=== PATIENT | female | born 1970 | race Caucasian/White ===

== ENCOUNTER 2016-10-28 10:09 | Emergency (ER) | payer MEDICAID, OTHER ==
--- NOTE | 2016-10-28 10:56 | ER Document Report ---
ED GI/ - General Time seen by provider: 10:44 Mode of Arrival: Ambulatory Information source: Patient TRAVEL OUTSIDE OF THE [place] IN LAST 30 DAYS: No - HPI Patient complains to provider of: Abdominal pain Onset: Other - see HPI note Similar symptoms previously: Yes Recently seen / treated by doctor: Yes <JOBY WALKER - Last Filed: 10/28/16 11:08> <ZACKARY GALAVIZMY - Last Filed: 10/31/16 02:57> - General Chief Complaint: Abdominal Pain Stated Complaint: ABDOMINAL PAIN Notes: Patient is a 46-year-old female presenting to the emergency department for lower abdominal pain and left-sided abdominal pain and nausea. Patient is unsure if she is and told the triage nurse that she hasn't had a menstrual period for a couple of months. Patient has had a tubal ligation. Patient also has had a bladder sling, and abdominal exploratory surgery which told that her bladder sling was in the wrong spot. Surgeons do not want to remove this due to multiple adhesions. 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 Patient has been evaluated in this emergency department multiple times for this pain and has been told several times that she is to follow up outpatient with a specialist. Patient states that she has health insurance, but also states that she cannot afford to see a specialist. Patient has been evaluated by [facility] and her primary care physician is with [facility] in [place]. (JOBY WALKER) - Related Data Allergies/Adverse Reactions: erythromycin base [Erythromycin Base] Allergy (Verified 10/28/16 10:22) Sulfa (Sulfonamide Antibiotics) Allergy (Verified 10/28/16 10:22) Past Medical History - General Information source: Patient - Social History Smoking Status: Current Every Day Smoker Chew tobacco use (# tins/day): No Frequency of alcohol use: None Drug Abuse: None Family History: None Patient has suicidal ideation: No Patient has homicidal ideation: No Pulmonary Medical History: Reports: Hx Asthma, Hx COPD Renal/ Medical History: Reports: Hx Ovarian Cysts - Right GI Medical History: Reports: Hx Gastroesophageal Reflux Disease - Reed's esophagus, Hx Irritable Bowel Psychiatric Medical History: Reports: Hx Attention Deficit Hyperactivity Disorder Past Surgical History: Reports: Hx Adenoidectomy, Hx Gynecologic Surgery - DNC, Hx Tonsillectomy, Hx Tubal Ligation - Immunizations Immunizations up to date: Yes Hx Diphtheria, Pertussis, Tetanus Vaccination: Yes <JOBY WALKER - Last Filed: 10/28/16 11:08> Review of Systems - Review of Systems Constitutional: No symptoms reported EENT: No symptoms reported Cardiovascular: No symptoms reported Respiratory: No symptoms reported Gastrointestinal: No symptoms reported Genitourinary: No symptoms reported Female Genitourinary: No symptoms reported Musculoskeletal: No symptoms reported Skin: No symptoms reported Hematologic/Lymphatic: No symptoms reported Neurological/Psychological: No symptoms reported -: Yes All other systems reviewed and negative <JOBY WALKER - Last Filed: 10/28/16 11:08> Physical Exam - Vital signs Interpretation: Normal - General General appearance: Appears well, Alert In distress: Mild - HEENT Head: Normocephalic, Atraumatic Eyes: Normal Pupils: PERRL Mucous membranes: Moist - Respiratory Respiratory status: No respiratory distress Chest status: Nontender Breath sounds: Normal Chest palpation: Normal - Cardiovascular Rhythm: Regular Heart sounds: Normal auscultation Murmur: No - Abdominal Inspection: Normal Distension: No distension Bowel sounds: Normal Tenderness: Nontender Organomegaly: No organomegaly - Back Back: Normal, Nontender - Extremities General upper extremity: Normal inspection, Normal ROM, Normal strength General lower extremity: Normal inspection, Normal ROM, Normal strength - Neurological Neuro grossly intact: Yes Cognition: Normal Orientation: AAOx4 Bertha Coma Scale Eye Opening: Spontaneous Bertha Coma Scale Verbal: Oriented Bertha Coma Scale Motor: Obeys Commands Bertha Coma Scale Total: 15 Speech: Normal Sensory: Normal - Psychological Associated symptoms: Normal affect, Normal mood - Skin Skin Temperature: Warm Skin Moisture: Dry <JOBY WALKER - Last Filed: 10/28/16 11:08> <YUMIKO GALAVIZ - Last Filed: 10/31/16 02:57> - Vital signs Vitals: Temp Pulse Resp BP Pulse Ox 98.1 F 77 16 118/78 99 10/28/16 10:22 10/28/16 10:22 10/28/16 10:22 10/28/16 10:22 10/28/16 10:22 Course <JOBY WALKER - Last Filed: 10/28/16 11:08> - Laboratory Result Diagrams: 10/28/16 10:57 10/28/16 10:57 <YUMIKO GALAVIZ - Last Filed: 10/31/16 02:57> - Re-evaluation Re-evalutation: 10/28/16 12:04 Patient presents emergency per with her who is also being seen with chief plain left lower quadrant abdominal pain. Patient states she's been working for 5 days and she "feels like her uterus is going to fall out. Patient has had chronic recurrent lower abdominal pain associated with multiple specialists for a bladder sling that she had done years ago. She has been seen in [place] by urology she's been seen were [facility] and has doctors at [facility] [place] as well. She has multiple recurrent ED visits for the same complaint most recently begging and pleading for narcotics from the provider. At this time she says that the pain is of left lower quadrant not associated with nausea vomiting diarrhea denies any new injury numbness tingling weakness back pain or loss of bowel or bladder function. Says she just got insurance once when she hasn't seen her specialist recently. On examination mild tenderness no associated guarding rebound rigidity pulsatile dullness or hernias. Differential diagnosis includes a chronic pain that she has associated with the bladder splaying adhesions or other chronic medical conditions. I had the casey saw operator come back and talk to her and has offered to make her follow-up appointments for [facility] and urology this is she follows up with she also has a primary care physician. At this point reassessing labs make sure there is no acute laboratory abnormalities. 10/28/16 12:55 Patient reassessed at bedside no acute tenderness guarding rebound rigidity pulsatile dullness or hernias labs are nonacute including white count elevation urinalysis. This time the casey saw operator is in their offering to make an appointment with the primary care physician she declines on says she'll make her own appointment. This is what we've had trouble with in the past the casey saw operator I strongly encouraged her to allow her to make the appointment patient says she will do it on her own. She also has an [facility] and urology specialist in [place]. She is to call today to make an appointment to be seen in follow- up in 2-3 days and discussed reasons for ED return sooner (YUMIKO GALAVIZ) - Vital Signs Vital signs: Temp Pulse Resp BP Pulse Ox 97.7 F 68 16 128/76 H 99 10/28/16 13:00 10/28/16 13:00 10/28/16 13:00 10/28/16 13:00 10/28/16 13:00 - Laboratory Laboratory results interpreted by me: 10/28/16 10:57 RDW 15.3 H Discharge <JOBY WALKER - Last Filed: 10/28/16 11:08> <YUMIKO GALAVIZ - Last Filed: 10/31/16 02:57> - Discharge Clinical Impression: Abdominal pain Qualifiers: Abdominal location: lower abdomen, unspecified Qualified Code(s): R10.30 - Lower abdominal pain, unspecified Condition: Stable Disposition: HOME, SELF-CARE Additional Instructions: Abdominal Pain There are many causes of abdominal pain. Pain can mean a serious problem requiring surgery (such as appendicitis). It can also be an innocent problem that goes away on its own (such as a viral infection). Often, time must pass to determine the cause of pain. The physician does not feel that hospitalization is necessary, at present. Things may change within the next 24 hours. Call the doctor or come back for re- examination if any problems occur, such as: (1) Pain that becomes more severe, steady, or becomes concentrated in one specific area. Also, pain that is more severe with movement or coughing. (2) Vomiting that persists or becomes more frequent. (3) Blood in the vomitus, urine, or bowel movements. Blood in the stool may have a tarry or black appearance. (4) Shaking chills or fever greater than 100 degrees F. (5) The abdomen becomes more distended or swollen. (6) Bowel movements cease. (7) Failure to improve as expected. We have seen and evaluated you for left lower quadrant abdominal pain. The labs are stable no acute white count elevation signifying infection no urinary tract infection labs are otherwise stable casey saw operator is talking with you and making you follow-up appointments with the [facility] and urology that you have seen in the past. In addition to that, she'll follow up with her primary care physician in one to 2 days return for increasing worsening or new symptoms Called your [facility] care physician in [place] today to make appointment to be seen in follow-up 2-3 days also contact your [facility] and urology specialist in [place] to make a follow-up appointment in 3-5 days return for increasing worsening or new symptoms Forms: Return to Work Scribe Attestation: 10/28/16 12:06 I personally performed the services described in the documentation, reviewed the documentation recorded by the scribe in my presence and it accurately incompletely records my words and actions. (YUMIKO GALAVIZ) Scribe Documentation - Scribe Written by Scribe:: Joby Walker 10/28/16 11:00 acting as scribe for :: Joel <JOBY WALKER - Last Filed: 10/28/16 11:08>
[2016-10-28 11:15] LABS: ABSOLUTE BASOPHILS # (AUTO) 0.1 10^3/uL (0.0-0.2); ABSOLUTE EOSINOPHILS # (AUTO) 0.2 10^3/uL (0.0-0.6); ABSOLUTE LYMPHOCYTES (AUTO) 1.8 10^3/uL (0.5-4.7); ABSOLUTE MONOCYTES (AUTO) 0.7 10^3/uL (0.1-1.4); ABSOLUTE NEUT (AUTO) 4.9 10^3/uL (1.7-8.2); EOSINOPHILS % (AUTO) 2.5 % (0-6); HEMATOCRIT 41.1 % (36.0-47.0); HEMOGLOBIN 13.8 g/dL (12.0-15.5); HGB HCT DIFFERENCE 0.3; LYMPHOCYTES % (AUTO) 23.4 % (13-45); MEAN CORPUSCULAR HEMOGLOBIN 29.2 pg (27.0-33.4); MEAN CORPUSCULAR HGB CONC 33.6 g/dL (32.0-36.0); MEAN CORPUSCULAR VOLUME 87 fl (80-97); RED BLOOD COUNT 4.74 10^6/uL (3.72-5.28); RED CELL DISTRIBUTION WIDTH 15.3 % (11.5-14.0); SEGMENTED NEUTROPHILS % (AUTO) 64.1 % (42-78); WHITE BLOOD COUNT 7.6 10^3/uL (4.0-10.5)
[2016-10-28 11:25] LABS: APPEARANCE,URINE CLEAR; BILIRUBIN,URINE NEGATIVE (NEGATIVE); GLUCOSE, URINE NEGATIVE (NEGATIVE); KETONES,URINE NEGATIVE (NEGATIVE); LEUKOCYTE ESTERASE,URINE NEGATIVE (NEGATIVE); NITRITE,URINE NEGATIVE (NEGATIVE); PROTEIN,URINE NEGATIVE (NEGATIVE); URINE SPECIFIC GRAVITY 1.012; UROBILINOGEN,URINE NEGATIVE mg/dL (<2.0)
[2016-10-28 11:40] LABS: ALANINE AMINOTRANSFERASE 35 U/L (9-52); ALBUMIN 4.4 g/dL (3.5-5.0); ALKALINE PHOSPHATASE 75 U/L (38-126); ANION GAP 12 (5-19); ASPARTATE AMINO TRANSFERASE 25 U/L (14-36); BILIRUBIN,DIRECT 0.2 mg/dL (0.0-0.4); BILIRUBIN,TOTAL 0.5 mg/dL (0.2-1.3); BLOOD UREA NITROGEN 18 mg/dL (7-20); CARBON DIOXIDE 26 mmol/L (22-30); CHLORIDE 104 mmol/L (98-107); CREATININE RESULT 0.69 mg/dL (0.52-1.25); GLUCOSE 93 mg/dL (75-110); LIPASE 128.7 U/L (23-300); POTASSIUM 4.5 mmol/L (3.6-5.0); SODIUM 142.3 mmol/L (137-145); TOTAL PROTEIN 7.3 g/dL (6.3-8.2)
[2016-10-28 11:55] LABS: URINE BARBITURATES SCREEN NEGATIVE; URINE METHADONE SCREEN NEGATIVE; URINE OPIATES LOW NEGATIVE; URINE PHENCYCLIDINE SCREEN NEGATIVE
[2016-10-28 13:33] VITALS: BP 128/76
== END 2016-10-28 12:57 | disposition home or self-care (01) ==
LOC: ER 10:09
DX: K66.0 Peritoneal adhesions (postprocedural) (postinfection) (principal); R10.32 Left lower quadrant pain; R11.0 Nausea; F17.200 Nicotine dependence, unspecified, uncomplicated; J44.9 Chronic obstructive pulmonary disease, unspecified; Z98.51 Tubal ligation status; Z98.890 Other specified postprocedural states
CPT/HCPCS: 36415; 80053; 80307; 81001; 83690; 85025; 99284

== ENCOUNTER 2017-04-16 09:50 | Emergency (ER) | payer OTHER, MEDICAID ==
[2017-04-16] MEDS ORDERED: IBUPROFEN 600 MG TABLET PO ONE (10:49)
[2017-04-16 11:28] LABS: APPEARANCE,URINE SLIGHTLY-CLOUDY; BILIRUBIN,URINE NEGATIVE (NEGATIVE); GLUCOSE, URINE NEGATIVE (NEGATIVE); KETONES,URINE 80 mg/dL (NEGATIVE); LEUKOCYTE ESTERASE,URINE NEGATIVE (NEGATIVE); NITRITE,URINE NEGATIVE (NEGATIVE); PROTEIN,URINE NEGATIVE (NEGATIVE); URINE SPECIFIC GRAVITY 1.025; UROBILINOGEN,URINE NEGATIVE mg/dL (<2.0)
[2017-04-16] MEDS ORDERED: ONDANSETRON 4 MG TAB.RAPDIS PO ONE (11:41)
[2017-04-16] MEDS ORDERED: MAGNESIUM CITRATE 296 ML BOTTLE PO ONE (11:41)
[2017-04-16] MEDS ORDERED: AZITHROMYCIN 250 MG TABLET PO ONE (11:46)
[2017-04-16] MEDS ORDERED: LIDOCAINE 1% INJ-PF (10 MG/ML) 30 ML SDV INJ ONE (11:46)
[2017-04-16] MEDS ORDERED: CEFTRIAXONE INJ 250 MG VIAL IM ONE (11:46)
--- NOTE | 2017-04-16 12:07 | ER Document Report ---
ED Flu Like - General Chief Complaint: Flu Symptoms Stated Complaint: FLU LIKE SYMPTOMS Time Seen by Provider: 04/16/17 10:13 Mode of Arrival: Ambulatory Information source: Patient Notes: 46-year-old female presents to ED for complaint of body aches nausea vomiting sore throat fatigue fever with no bowel movement in 5 days. She states she also has a vaginal discharge. States her last menstrual period was last week. TRAVEL OUTSIDE OF THE [place] IN LAST 30 DAYS: No - HPI Onset: Last week Timing/Duration: Persistent Quality of pain: Achy, Cramping Severity: Moderate Pain Level: 4 Associated symptoms: Body/muscle aches, Nonproductive cough, Fever, Rhinnorhea, Sinus pain/drainage, Sore throat, Other - Constipation Similar symptoms previously: Yes Recently seen / treated by doctor: No - Related Data Allergies/Adverse Reactions: erythromycin base [Erythromycin Base] Allergy (Verified 10/28/16 10:22) gabapentin Allergy (Verified 04/16/17 09:53) Sulfa (Sulfonamide Antibiotics) Allergy (Verified 10/28/16 10:22) tramadol [From Ultram] Adverse Reaction (Verified 04/16/17 09:54) Past Medical History - General Information source: Patient - Social History Smoking Status: Current Every Day Smoker Cigarette use (# per day): Yes - 4-5 cigarettes a day Chew tobacco use (# tins/day): No Smoking Education Provided: Yes - Less than 2 minutes Frequency of alcohol use: None Drug Abuse: None Occupation: None Lives with: Family Family History: None Patient has suicidal ideation: No Patient has homicidal ideation: No - Past Medical History Cardiac Medical History: Reports: None Pulmonary Medical History: Reports: Hx Asthma, Hx COPD EENT Medical History: Reports: None Endocrine Medical History: Reports: None Renal/ Medical History: Reports: Hx Ovarian Cysts - Right Malignancy Medical History: Reports: None GI Medical History: Reports: Hx Gastroesophageal Reflux Disease - Reed's esophagus, Hx Irritable Bowel Musculoskeltal Medical History: Reports Hx Musculoskeletal Deformity, Reports Hx Musculoskeletal Trauma Skin Medical History: Reports None Psychiatric Medical History: Reports: Hx Attention Deficit Hyperactivity Disorder Traumatic Medical History: Reports: None Infectious Medical History: Reports: None Past Surgical History: Reports: Hx Abdominal Surgery - Laparoscopy, Hx Adenoidectomy, Hx Genitourinary Surgery - Bladder sling, Hx Gynecologic Surgery - DNC, Hx Nose Surgery - Rhinoplasty, Hx Tonsillectomy, Hx Tubal Ligation - Immunizations Immunizations up to date: Yes Hx Diphtheria, Pertussis, Tetanus Vaccination: Yes Review of Systems - Review of Systems Constitutional: Fever, Recent illness EENT: Nose congestion, Nose discharge, Sinus discharge, Throat pain Cardiovascular: No symptoms reported Respiratory: Cough Gastrointestinal: Abdominal pain, Diarrhea, Nausea, Vomiting, Constipation - Days no BM in 5 days Genitourinary: No symptoms reported Female Genitourinary: Vaginal discharge, Vaginal odor Musculoskeletal: No symptoms reported Skin: No symptoms reported Hematologic/Lymphatic: No symptoms reported Neurological/Psychological: No symptoms reported -: Yes All other systems reviewed and negative Physical Exam - Vital signs Vitals: Temp Pulse Resp BP Pulse Ox 100.0 F 111 H 18 118/80 98 04/16/17 09:53 04/16/17 09:53 04/16/17 09:53 04/16/17 09:53 04/16/17 09:53 Interpretation: Normal - General General appearance: Appears well, Alert - HEENT Head: Normocephalic, Atraumatic Eyes: Normal Pupils: PERRL Ears: Normal External canal: Normal Tympanic membrane: Normal Sinus: Normal Nasal: Purulent discharge, Swelling Mouth/Lips: Normal Mucous membranes: Normal Pharynx: Post nasal drainage. No: Erythema, Exudate, Peritonsillar abscess, Tonsillar hypertrophy, Potential airway comprom. Neck: Normal - Respiratory Respiratory status: No respiratory distress Chest status: Nontender Breath sounds: Nonproductive cough. No: Rales, Rhonchi, Stridor, Wheezing Chest palpation: Normal - Cardiovascular Rhythm: Regular Heart sounds: Normal auscultation Murmur: No - Abdominal Inspection: Normal Distension: No distension Bowel sounds: Hyperactive Tenderness: Tender - Generalized Organomegaly: No organomegaly - Genitourinary Speculum exam: Vaginal discharge Vaginal bleeding: None Bimanuel exam: Normal - Back Back: Normal, Nontender - Extremities General upper extremity: Normal inspection, Nontender, Normal color, Normal ROM , Normal temperature General lower extremity: Normal inspection, Nontender, Normal color, Normal ROM , Normal temperature, Normal weight bearing. No: Oswaldo's sign - Neurological Neuro grossly intact: Yes Cognition: Normal Orientation: AAOx4 [place] Coma Scale Eye Opening: Spontaneous [place] Coma Scale Verbal: Oriented [place] Coma Scale Motor: Obeys Commands [place] Coma Scale Total: 15 Speech: Normal Motor strength normal: LUE, RUE, LLE, RLE Sensory: Normal - Psychological Associated symptoms: Normal affect, Normal mood - Skin Skin Temperature: Warm Skin Moisture: Dry Skin Color: Normal Course - Re-evaluation Re-evalutation: 04/16/17 13:27 Patient was treated with azithromycin and Rocephin due to the vaginal discharge and vaginitis. She also has a upper respiratory infection. She was also treated with soapsuds enema and MiraLAX for her constipation with a large amount of stool is returned. Patient was treated with Zofran for her nausea. Patient encouraged to increase her p.o. fluid intake and to follow-up with her primary doctor. - Vital Signs Vital signs: Temp Pulse Resp BP Pulse Ox 98.0 F 105 H 18 107/57 L 97 04/16/17 12:20 04/16/17 12:20 04/16/17 12:20 04/16/17 12:20 04/16/17 12:20 - Laboratory Laboratory results interpreted by me: 04/16/17 11:05 Urine Ketones 80 H Urine Blood MODERATE H Discharge - Discharge Clinical Impression: Sore throat (viral) URI (upper respiratory infection) Qualifiers: URI type: unspecified URI Qualified Code(s): J06.9 - Acute upper respiratory infection, unspecified Constipation Qualifiers: Constipation type: unspecified constipation type Qualified Code(s): K59.00 - Constipation, unspecified Vaginitis Qualifiers: Chronicity: acute Qualified Code(s): N76.0 - Acute vaginitis Condition: Stable Disposition: HOME, SELF-CARE Additional Instructions: UPPER RESPIRATORY ILLNESS: You have a viral infection of the respiratory passages -- a "cold." This common infection causes nasal congestion, drainage, and often sore throat and cough. It is highly contagious. The disease usually lasts about 10 to 14 days. There is no "cure" for the viral infection -- it must run its course. If there is a complication, such as bacterial infection in the nose, sinuses, middle ear, or bronchial tubes, antibiotics may be required. The antibiotics won't affect the virus. Drink plenty of fluids. A humidifier may help. An expectorant medication or decongestant may make you more comfortable. Use acetaminophen or ibuprofen for fever or aches. See the doctor if fever persists over two days, if there is any significant worsening of your symptoms, or if you simply fail to improve as expected. VAGINITIS: Your exam shows that you have vaginitis, a vaginal infection. The infection can be caused by a many different organisms, including trichomonas or Gardnerella. The usual symptoms are vaginal irritation and discharge. The treatment is usually antibiotics such as Flagyl. Laboratory tests can determine which germ is responsible. Use the medication as prescribed. Because this infection can be transmitted sexually, your sexual partner may need to be checked and treated also. If your physician has not discussed this with you, please check before resuming sexual relations. If a culture shows gonorrhea or chlamydia, the infection must be reported to the health department. Call the doctor if you develop pelvic pain, fever, or problems with urination, or if you don't improve as expected. CONSTIPATION: Constipation is a common problem. It is especially likely as you get older. Constipation is a common cause of abdominal pain, but sometimes causes no symptoms at all. Causes of constipation include certain medications, dehydration, diets, inactivity, and low-fiber intake. Rarely, it can be a symptom of underlying disease. The physician has evaluated you for this. Avoid constipation by eating a diet high in fiber, fruits, and vegetables. Drink plenty of liquids. Get regular exercise. If possible, avoid constipating medicines like narcotic pain medication. Some vitamin tablets can cause constipation. Stool softeners may be needed for difficult cases. An excellent stool softener is Konsyl which is available at [place], and [facility]. Just add a teaspoon to a glass of pineapple or orange juice daily or twice a day if needed. Laxatives are useful for occasional constipation. You should use them only when necessary. Too-frequent use can make your bowels dependent on them. Some over the counter laxatives available without prescription are: Milk of Magnesia, 1-2 tablespoons twice a day Dulcolax, 5 mg pill or 10 mg suppository. Citrate of Magnesia, 4-5 ounces a day for a day or two For acute constipation, Fleet's Enemas and Dulcolax suppositories are helpful. Chronic, longterm use of laxatives or enemas is not a good idea. Your bowel may become dependant on them. You do not need to have a bowel movement every day. Many people do fine with a bowel movement every three or four days. You should call your doctor or return for re-evaluation if you pass blood in the stool, or if you develop fever or increasing abdominal pain. BULK LAXATIVES: Bulk laxatives make the stool softer and bulkier. They're useful for preventing constipation. You can choose between psyllium, methylcellulose, and polycarbophil. They are available without a prescription. Psyllium brand names include Konsyl, Metamucil, Perdiem, Effer-Syllium and Hydrocil. It's available as powder, flavored drink powder, or chewable. The usual dose of psyllium powder is one heaping teaspoon in water each morning, increasing to twice a day if needed. [place] juice can disguise the slightly grainy texture. Methylcellulose is marketed as Citrucel and other brands. The average dose is two grams in a cup of water one to three times a day. Polycarbophil is marketed as Fiber-Con. Take two tablets with a cup of water one to three times a day. LAXATIVE: A laxative agent has been prescribed for your condition. This should result in passage of stool within 12 hours. Some mild intestinal cramping is common as the hard stool begins to move. You may have loose or runny stools for a short time. Contact your doctor if there is severe cramping, vomiting, or passage of blood. Return for further care if this medicine fails to improve your condition. CEPHALOSPORINS: An antibiotic of the cephalosporin class has been prescribed. This type of antibiotic covers a wide variety of infections, including those of the skin, lungs, middle ear, and urinary tract. This antibiotic is somewhat similar to the penicillin family. In rare cases , a person who is allergic to penicillin will also be allergic to this medication. If you have had a severe allergic reaction to penicillin, and have not taken this antibiotic since that time, notify your doctor. Antibiotics which cover many germs ("broad spectrum" antibiotics) are more likely to cause diarrhea or "yeast" infections. Women prone to vaginal yeast problems may suffer an attack after taking this antibiotic. In infants, oral thrush (white spots "stuck" on the cheek) or yeast diaper rash may result. See your doctor if these problems occur. Call the doctor at once if you develop hives, itching, shortness of breath , or lightheadedness. AZITHROMYCIN: Azithromycin (Zithromax) is a broad spectrum antibiotic in the same class as erythromycin. It can treat a variety of bacterial infections, but is most frequently used for respiratory infections. Azithromycin is extremely long-lasting. It accumulates in body tissues and continues to kill bacteria for many days. In order to improve absorption, Azithromycin should be taken at least one hour before or two hours after a meal. It does not have the same strong tendency to upset the stomach as erythromycin and is usually very well tolerated. Patients who have had a rash or other true allergic reactions to erythromycin should not take this medication. Call if you develop gastrointestinal distress, severe diarrhea, rash, hives, itching, or shortness of breath. DECONGESTANT MEDICATION: A decongestant medicine has been suggested. Often this medicine is combined in the same tablet with an antihistamine or expectorant. This type of medicine is helpful in treating a bad cold or sinus condition, as well as in treatment of the nasal congestion of hay fever. It is not of much benefit for lung infections. Decongestant medicines are related to stimulants. They can cause an increase in blood pressure and heart rate. Persons with heart disease and high blood pressure should not take decongestants without discussing this with the physician. If you develop palpitations, chest pain, headache, or tremors, stop the medicine and consult your physician. COUGH-SUPPRESSANT & EXPECTORANT MEDICATION: You are to use a cough medication as needed for relief of symptoms. This medicine is a combination of an expectorant (to make the mucous thinner and more easily "coughed up") and a cough suppressant (to reduce the frequency of coughing). The cough-suppressant medicine is related to narcotics. You may experience mild nausea and sleepiness. Some patients who are very sensitive to narcotics may have stomach pain from this medicine. Taking the medicine with food reduces these side effects. Do not drive or work with machinery until you know how this medicine affects you. The expectorant should have no side effects. Iodine-containing expectorants (such as organidin) should not be taken by persons with active thyroid disease unless approved by your doctor. Call the doctor if you develop shortness of breath, hives, rash, itching, lightheadedness, or severe nausea and vomiting. USE OF ACETAMINOPHEN (Tylenol): Acetaminophen may be taken for pain relief or fever control. It's much safer than aspirin, offering a wider range of "safe" dosages. It is safe during . Some brand names are Tylenol, Panadol, Datril, Anacin 3, Tempra, and Liquiprin. Acetaminophen can be repeated every four hours. The following are maximum recommended dosages: >89 pounds or adults 650 mg to 900 mg Acetaminophen can be repeated every four hours. Maximum dose not to exceed 4000 mg a day. SMOKING: If you smoke, you should stop smoking. The tar and chemicals in cigarette smoke are harmful. Smoking has been shown to cause: emphysema chronic bronchitis lung cancer mouth and throat cancer stomach and pancreas cancer premature aging defects In addition, smoking increases ear and lung infections in children of smokers. Antinausea Medication You have been given a medication to suppress nausea and vomiting. This type of medication can be given as a shot, pill, or suppository. It will usually last for many hours. Pills and shots usually last six to eight hours, suppositories last about 12 hours. For the typical illness, only one or two doses of the medication may be necessary. Mild lightheadedness may occur. This type of medicine can cause drowsiness. Do not drive or operate dangerous machinery while under its influence. Do not mix with alcohol. See your doctor at once if you have muscle spasms or tightness, or uncontrollable motions (particularly of the neck, mouth, or jaw). Persistent vomiting or severe lightheadedness should also be evaluated by the physician. FOLLOW-UP CARE: If you have been referred to a physician for follow-up care, call the physician s office for an appointment as you were instructed or within the next two days. If you experience worsening or a significant change in your symptoms, notify the physician immediately or return to the Emergency Department at any time for re-evaluation. Prescriptions: Ibuprofen 600 mg PO Q8HP PRN #20 tablet PRN Reason: Ondansetron [Zofran Odt 4 mg Tablet] 1 tab PO Q6H #15 tab.rapdis Forms: Return to Work
[2017-04-16 12:22] VITALS: BP 107/57
[2017-04-16 12:52] LABS: CHLAM PCR NOT DETECTED (NOT DETECT)
== END 2017-04-16 12:22 | disposition home or self-care (01) ==
LOC: ER 09:50
DX: J06.9 Acute upper respiratory infection, unspecified (principal); N76.0 Acute vaginitis; K59.00 Constipation, unspecified; J02.9 Acute pharyngitis, unspecified; M79.1 Myalgia; R11.2 Nausea with vomiting, unspecified; R53.83 Other fatigue; R50.9 Fever, unspecified; N89.8 Other specified noninflammatory disorders of vagina; F17.210 Nicotine dependence, cigarettes, uncomplicated
CPT/HCPCS: 99283; 96372; 51701; 87070; 87210; 87880; 81025; 81001; 87491; 87591; 87804; J3490 ×2; S0119; J0696

== ENCOUNTER 2017-06-18 14:12 | Emergency (ER) | payer OTHER, MEDICAID ==
[2017-06-18 15:01] VITALS: BP 110/73
--- NOTE | 2017-06-18 15:31 | ER Document Report ---
ED General - General Chief Complaint: Overdose Stated Complaint: POSSIBLE OVERDOSE Time Seen by Provider: 06/18/17 14:59 Mode of Arrival: Ambulatory Information source: Patient Notes: This is a 46-year-old female that initially was brought in to the emergency room as a possible overdose. Patient has been under a lot of stress lately and was in an argument with her (she is having a divorce) and she states she said she had taken an overdose in the heat of the moment, but she states she never took anything. TRAVEL OUTSIDE OF THE [place] IN LAST 30 DAYS: No - HPI Onset: Just prior to arrival Onset/Duration: Sudden Quality of pain: No pain Severity: None Pain Level: Denies Associated symptoms: None Exacerbated by: Denies Relieved by: Denies Similar symptoms previously: Yes Recently seen / treated by doctor: No - Related Data Allergies/Adverse Reactions: erythromycin base [Erythromycin Base] Allergy (Verified 06/18/17 14:13) gabapentin Allergy (Verified 06/18/17 14:13) Sulfa (Sulfonamide Antibiotics) Allergy (Verified 06/18/17 14:13) tramadol [From Ultram] Adverse Reaction (Verified 06/18/17 14:13) Past Medical History - General Information source: Patient - Social History Smoking Status: Current Every Day Smoker Cigarette use (# per day): Yes - 1 pack per day Chew tobacco use (# tins/day): No Frequency of alcohol use: None Drug Abuse: None Lives with: Family Family History: None Patient has suicidal ideation: Yes Patient has homicidal ideation: No Pulmonary Medical History: Reports: Hx Asthma, Hx COPD Renal/ Medical History: Reports: Hx Ovarian Cysts - Right. Denies: Hx Kidney Stones, Hx Peritoneal Dialysis, Hx Pelvic Inflammatory Disease, Hx Renal Insufficiency GI Medical History: Reports: Hx Gastroesophageal Reflux Disease - Reed's esophagus, Hx Irritable Bowel Musculoskeltal Medical History: Reports Hx Musculoskeletal Deformity, Reports Hx Musculoskeletal Trauma Psychiatric Medical History: Reports: Hx Attention Deficit Hyperactivity Disorder Past Surgical History: Reports: Hx Abdominal Surgery - Laparoscopy, Hx Adenoidectomy, Hx Genitourinary Surgery - Bladder sling, Hx Gynecologic Surgery - DNC, Hx Nose Surgery - Rhinoplasty, Hx Tonsillectomy, Hx Tubal Ligation - Immunizations Immunizations up to date: Yes Hx Diphtheria, Pertussis, Tetanus Vaccination: Yes Review of Systems - Review of Systems Constitutional: denies: Chills, Fever EENT: No symptoms reported Cardiovascular: No symptoms reported Respiratory: No symptoms reported Gastrointestinal: No symptoms reported Genitourinary: No symptoms reported Female Genitourinary: No symptoms reported Musculoskeletal: No symptoms reported Skin: No symptoms reported Hematologic/Lymphatic: No symptoms reported Neurological/Psychological: See HPI Physical Exam - Vital signs Vitals: Temp Pulse Resp BP Pulse Ox 98.5 F 102 H 16 123/81 97 06/18/17 14:18 06/18/17 14:18 06/18/17 14:18 06/18/17 14:18 06/18/17 14:18 Notes: Physical exam: GENERAL: 46-year-old female, alert and oriented 3, no acute distress HEAD: Atraumatic, normocephalic. EYES: Pupils equal round and reactive to light, extraocular movements intact, sclera anicteric, conjunctiva are normal. ENT: TMs normal, nares patent, oropharynx clear without exudates. Moist mucous membranes. NECK: Normal range of motion, supple without obvious mass or JVD. LUNGS: Breath sounds clear to auscultation bilaterally and equal. No wheezes rales or rhonchi. HEART: Regular rate and rhythm without murmurs, rubs or gallops. ABDOMEN: Soft, normoactive bowel sounds. No tenderness to palpation. No guarding, no rebound. No masses appreciated. EXTREMITIES: Normal range of motion, no pitting or edema. No clubbing or cyanosis. NEUROLOGICAL: Cranial nerves II through XII grossly intact. Normal speech, moving all extremities. PSYCH: Patient denies any suicidal ideations. She did apologize for saying that she had taken an overdose. She adamantly denies this now. She is accompanied by her mother. She denies any hallucinations or delusions. SKIN: Warm, Dry, normal turgor, no rashes or lesions noted. Course - Re-evaluation Re-evalutation: 06/18/17 15:29 The patient appears medically clear at this time. I do not suspect that she had taken an overdose. She was evaluated by Dr. Nguyễn who is cleared her psychiatrically. She will be given some resources. The patient does plan to follow-up with [facility]. - Vital Signs Vital signs: Temp Pulse Resp BP Pulse Ox 98.5 F 95 18 110/73 95 06/18/17 14:18 06/18/17 15:01 06/18/17 15:01 06/18/17 15:01 06/18/17 15:01 Discharge - Discharge Clinical Impression: Mood disorder NOS Condition: Stable Disposition: HOME, SELF-CARE Additional Instructions: Recommendations: Continue follow-up with [facility]. Dr. Nguyễn will give you some referral papers for other resources. Return to the emergency room at once for any thoughts of wanting to hurt yourself or any thoughts of losing control.
--- NOTE | 2017-06-18 17:09 | PSYCHOLOGICAL NOTE ---
Psych Note - Psych Note Psych Note: Patient reported her brought her to the Emergency Department after she stated she had taken twenty Nitroglycerin pills. After arrival, Patient denied having taken the pills. She stated she had told her she had taken the pills because she, "wanted him to feel bad for me." She indicated she and her are because of the ongoing negative interactions between him and her son, his catalina. She reported her is disabled and she works night shifts at [employer] to financially support the family. She reported several stressors in her life, to include the dissolution of her marriage, her sixteen year old son's involvement in drugs and alcohol and being arrested, having no communication with her daughters, her mother being Bipolar and the murder of her grandfather by her father's several years ago. Patient reported she and her son are seen at [facility] for medication management and recently completed Intensive In Home services with [facility]. She stated her son is on medications for ADHD and anxiety but was unable to remember the names of the medications. She reported being prescribed medications for Depression and Anxiety to include Nuvigil and Celexa. She reported she had not started Celexa as it was still at the pharmacy because her insurance had not given the prior authorization necessary at this time. Patient reported attempting suicide at 13 years old by taking "a handful of pills." She denied any other attempts since that time. Patient's came into the room and was asked to step outside until the end of the evaluation. Patient's left but returned soon after and stated the patient's parents were in the waiting room and her 16 year old son had told them "a bunch of stuff" and then left. He indicated since the patient's parents were on premises and were angry with him he was leaving. Patient's left the room without further explanation. Patient became visibly upset at 's behavior and statements. Patient and provider discussed self care to include making time for therapy and focusing on herself despite the current stressors. Patient was alert and oriented to person, place, time and circumstance. Mood was sad and apologetic. Affect was mood congruent. She denied auditory/visual hallucinations. She denied suicidal / homicidal ideation, intent or plan. Thought processes were linear, rational and organized. Conversational speech was within normal limits for rate, tone and prosody. Intellectual abilities were estimated within the average range. Attention and concentration were within normal limits. Insight, judgment and impulse control were fair. 1. 296.32 (F33.1) Major Depressive Disorder, Moderate, Recurrent Impression/Plan: Patient is psychiatrically cleared for discharge. Patient denied suicidal or homicidal ideation, intent or plans. There is no evidence of self-harm or harm to others, and she regretted saying she had taken an overdose of pills when she had not. Educated Patient on how to use this experience as a way of teaching her son how not to deal with negative situations and show him how to rebound positively when things are or feel overwhelming. Patient demonstrated forward thinking as evidenced by her ambition to return to work tonight and continuing caring for her family. She expressed interest in outpatient counseling and continuation of her medication management. She was referred to [facility] and other outpatient therapy resources by the behavioral health team for the ongoing care and management of her Major Depressive Disorder. ED physician in agreement with recommendation and disposition.
== END 2017-06-18 15:45 | disposition home or self-care (01) ==
LOC: ER 14:12
DX: F39 Unspecified mood [affective] disorder (principal); T50.901A Poisoning by unspecified drugs, medicaments and biological substances, accidental (unintentional), initial encounter; F17.210 Nicotine dependence, cigarettes, uncomplicated
CPT/HCPCS: 99284

== ENCOUNTER 2017-07-01 00:40 | Emergency (ER) | payer OTHER, MEDICAID ==
--- NOTE | 2017-07-01 01:55 | ER Document Report ---
ED Cardiac - General Chief Complaint: Chest Tightness Stated Complaint: CHEST TIGHTNESS Time Seen by Provider: 07/01/17 01:54 Notes: The patient is a 47-year-old female, past medical history hiatal hernia, GERD, current smoker, presents with 1 day of left upper chest pain that is described as a tightness with left upper arm pain and fatigue. She is also feeling mild shortness of breath. Earlier today, she felt a sharp sensation in her left upper arm that has resolved. She has not had this in the past. Patient denies back pain, headache, cough, fevers, rash, focal weakness, tingling, abdominal pain, nausea or vomiting. TRAVEL OUTSIDE OF THE [place] IN LAST 30 DAYS: No - Related Data Allergies/Adverse Reactions: erythromycin base [Erythromycin Base] Allergy (Verified 06/18/17 14:13) gabapentin Allergy (Verified 06/18/17 14:13) Sulfa (Sulfonamide Antibiotics) Allergy (Verified 06/18/17 14:13) tramadol [From Ultram] Adverse Reaction (Verified 06/18/17 14:13) Past Medical History - General Information source: Patient - Social History Smoking Status: Current Every Day Smoker Family History: None Pulmonary Medical History: Reports: Hx Asthma, Hx COPD Renal/ Medical History: Reports: Hx Ovarian Cysts - Right. Denies: Hx Kidney Stones, Hx Peritoneal Dialysis, Hx Pelvic Inflammatory Disease, Hx Renal Insufficiency GI Medical History: Reports: Hx Gastroesophageal Reflux Disease - Reed's esophagus, Hx Irritable Bowel Musculoskeltal Medical History: Reports Hx Musculoskeletal Deformity, Reports Hx Musculoskeletal Trauma Psychiatric Medical History: Reports: Hx Attention Deficit Hyperactivity Disorder Past Surgical History: Reports: Hx Abdominal Surgery - Laparoscopy, Hx Adenoidectomy, Hx Genitourinary Surgery - Bladder sling, Hx Gynecologic Surgery - DNC, Hx Nose Surgery - Rhinoplasty, Hx Tonsillectomy, Hx Tubal Ligation - Immunizations Immunizations up to date: Yes Hx Diphtheria, Pertussis, Tetanus Vaccination: Yes Review of Systems - Review of Systems Notes: REVIEW OF SYSTEMS: CONSTITUTIONAL: -fevers, -chills, +fatigue EENT: -eye pain, -difficulty swallowing, -nasal congestion CARDIOVASCULAR: +chest pain, -syncope. RESPIRATORY: -cough, +SOB GASTROINTESTINAL: -abdominal pain, -nausea, -vomiting, -diarrhea GENITOURINARY: -dysuria, -hematuria MUSCULOSKELETAL: -back pain, -neck pain SKIN: -rash or skin lesions. HEMATOLOGIC: -easy bruising or bleeding. LYMPHATIC: -swollen, enlarged glands. NEUROLOGICAL: -altered mental status or loss of consciousness, -headache PSYCHIATRIC: -anxiety, -depression. ALL OTHER SYSTEMS REVIEWED AND NEGATIVE. Physical Exam - Vital signs Vitals: Temp Pulse Resp BP Pulse Ox 98.6 F 102 H 18 141/88 H 100 07/01/17 00:51 07/01/17 00:51 07/01/17 00:51 07/01/17 00:51 07/01/17 00:51 - Notes Notes: PHYSICAL EXAMINATION: GENERAL: Well-appearing, well-nourished and in no acute distress. HEAD: Atraumatic, normocephalic. EYES: Pupils equal round and reactive to light, extraocular movements intact, sclera anicteric, conjunctiva are normal. ENT: nares patent, oropharynx clear without exudates. Moist mucous membranes. NECK: Normal range of motion, supple without lymphadenopathy LUNGS: Breath sounds clear to auscultation bilaterally and equal. No wheezes rales or rhonchi. HEART: Regular rate and rhythm without murmurs ABDOMEN: Soft, nontender, normoactive bowel sounds. No guarding, no rebound. No masses appreciated. EXTREMITIES: Tenderness over left upper arm, normal range of motion, no pitting or edema. No cyanosis. NEUROLOGICAL: Cranial nerves grossly intact. Normal speech, normal gait. Normal sensory and motor exams. PSYCH: Normal mood, normal affect. SKIN: Warm, Dry, normal turgor, no rashes or lesions noted. Course - Re-evaluation Re-evalutation: Patient's EKG and troponin do not show evidence of active ischemia. She is low risk for PE, but unable to PERC out due to initial tachycardia, which has resolved. D-dimer is negative and the risk of work-up for PE outweighs the benefits. Chest x-ray does not show any acute abnormalities and rest of blood work is unremarkable. HEART score is 2. Instructed her follow-up with her primary care physician for further evaluation and treatment. Patient presents with multiple vague complaints that did not appear to be concerning for any acute life-threatening pathology. Vitals are within normal limits at triage and at time of discharge. Physical examination is unremarkable. Patient has tolerated oral intake without difficulty. Patient was not noted to be in distress at any point during their ER visit. At this time, based on the reassuring evaluation, I do not suspect an acute WI, pulmonary embolus, aortic dissection, acute intra-abdominal pathology, stroke, or sepsis. Will discharge with return precautions and follow-up recommendations. Verbal discharge instructions given a the bedside and opportunity for questions given. Medication warnings reviewed. Patient is in agreement with this plan and has verbalized understanding of return precautions and the need for primary care follow-up in the next 24-72 hours. - Vital Signs Vital signs: Temp Pulse Resp BP Pulse Ox 98.6 F 102 H 16 137/98 H 100 07/01/17 00:51 07/01/17 00:51 07/01/17 02:01 07/01/17 02:01 07/01/17 02:01 - Laboratory Result Diagrams: 07/01/17 02:20 07/01/17 02:20 Laboratory results interpreted by me: 07/01/17 02:20 Calcium 10.6 H - Diagnostic Test Radiology reviewed: Image reviewed, Reports reviewed Radiology results interpreted by me: CXR: NAD - EKG Interpretation by Ut EKG shows normal: Sinus rhythm, [place], Intervals, QRS Complexes, ST-T Waves Rate: Normal Discharge - Discharge Clinical Impression: Chest pain Qualifiers: Chest pain type: unspecified Qualified Code(s): R07.9 - Chest pain, unspecified Fatigue Qualifiers: Fatigue type: unspecified Qualified Code(s): R53.83 - Other fatigue Condition: Stable Disposition: HOME, SELF-CARE Additional Instructions: CHEST PAIN OF UNCLEAR CAUSE: The exact cause of your chest pain isn't clear. Fortunately, there is no evidence of a dangerous medical condition. Further testing may be required to find the source of the pain. Most often, we find that this pain is coming from the chest wall -- the muscles or rib joints in the chest. But chest pain can come from the lung and lung lining, the esophagus, the heart valves or heart lining, and even the stomach or gallbladder. Rest. Eat lightly until the pain is gone. We may prescribe medicine for pain and inflammation. You should call the physician immediately if the pain radiates to the shoulder, jaw or arms; if you start to run a fever or develop a cough; or if you develop shortness of breath, or other new or alarming symptoms. NORMAL EXAM AND WORKUP: At this time, your examination and workup show no significant abnormality. No significant abnormal physical findings were noted. All laboratory, EKG, and imaging (x-ray, CT scans, ultrasound) studies that were ordered show no significant abnormality. Although your examination and all studies that were ordered showed no significant abnormal finding, there are no examinations and no studies that are 100% accurate. There is always the possibility that some abnormality could exist and not be detected with physical examination or within the limits and capabilities of laboratory and other studies. You should return or follow up as you were instructed on your visit today for further evaluation if your symptoms do not resolve. CHEST WALL PAIN: Your chest pain may be coming from the chest wall. This is often caused by straining the muscles or joints in the chest during physical activity, direct trauma, coughing, or vigorous vomiting. Persons with arthritis are especially prone to this type of pain, due to inflammation of the cartilage joints near the breast bone. Occasionally, no cause can be found. Rest from strenuous physical activity. This kind of chest pain is usually made worse by movement of the chest. Depending on the symptoms, we may prescribe medicine for pain, muscle relaxation, and antiinflammatory effects. If the pain is new, and seems to be due to muscle strain, cold packs can help. Otherwise, apply gentle warmth to the painful area for 15 minutes every hour or two. You should call contact the doctor immediately if things change. Further evaluation is needed if you develop a fever or cough, if the nature of the pain changes, or if you become short of breath. ANGINA EPISODE: Your physician has diagnosed the pain you experienced as an episode of angina. Angina occurs when a portion of the heart muscle temporarily lacks oxygen. It does not cause any permanent heart damage, but serves as a warning. Hospitalization is not necessary now. Evaluation of your cardiac condition , and medical therapy for angina will be necessary. It's important you be sure to keep all appointments and take medication exactly as prescribed. Angina is usually treated with a type of "nitrate" medication. This is available as ointment, pills, or sublingual (under the tongue) tablets. Depending on your clinical situation, other medications may be added to help control angina. These may include beta blockers or calcium blockers. If episodes of angina are occurring with increased frequency, or if chest pain lasts longer than 15 minutes or does not respond to nitroglycerin, you must seek emergency medical care immediately. ACID REFLUX DISEASE (GERD): Gastro-Esophageal Reflux Disease (GERD) is caused by stomach acid refluxing back up into the esophagus. The valve at the end of the esophagus may be weak. This is common in persons with a hiatal hernia. GERD symptoms can include indigestion, chest pain, heartburn, or food "sticking." Certain foods, alcohol, and aspirin can make GERD worse. Treatment depends on the severity. Usually, antacids or acid-suppressing medicines are used. When the esophagus is acutely inflamed, the physician will often prescribe membrane-protective drugs such as Carafate. Some patients benefit from medication such as Reglan that tightens the valve at the top of the stomach. Avoid those foods that bring on your symptoms. For many people, these foods are coffee, chocolate, onions, garlic, and carbonated drinks. Don't use alcohol, aspirin, caffeine, or tobacco. Don't eat late at night -- within 4 hours of bedtime. Don't over-eat. If necessary, elevate the head of your bed about 4 inches so that stomach acid will not roll up into your esophagus. Call the doctor if you develop severe chest pain, inability to swallow fluids, fever, or worsening symptoms. ASPIRIN: Aspirin has been shown to have a beneficial effect on blood circulation by reducing the clotting effect of platelets in the blood. These beneficial effects can be achieved by taking just a single baby (81 mg) aspirin a day. It is recommended that any person over the age of forty take a single baby aspirin every day for heart and brain circulation, unless you are allergic to aspirin or have some significant bleeding disorder. It is strongly recommended that people who have proven cardiac or blood circulation disturbances should take a baby aspirin every day. FOLLOW-UP CARE: If you have been referred to a physician for follow-up care, call the physician s office for an appointment as you were instructed or within the next two days. If you experience worsening or a significant change in your symptoms, notify the physician immediately or return to the Emergency Department at any time for re-evaluation. Neuralgia Neuralgia is nerve pain. Usually, the pains are sudden and sharp. They' re brief, but come repeatedly. The pains can occur spontaneously, or can be triggered by motion or touching. Sometimes the pain is constant. Neuralgia can occur with injury, infection, poor blood flow to the nerves, or chemical changes (such as hyperventilation). It's common in diseases that affect blood vessels, such as diabetes or high blood pressure. Anything that irritates or disturbs the nerves can cause neuralgia. The usual treatment is antiinflammatory medicine (such as ibuprofen, or prednisone for severe cases). Avoid rubbing or irritating the areas near the pain. Both adequate rest and regular aerobic exercise help reduce the frequency of the pains. A good mental attitude helps, too -- antidepressant medicine is often helpful for resistant cases of neuralgia. Call the doctor if there are new symptoms, such as numbness, loss of strength, discoloration of the skin, or continuous pain. Forms: Elevated Blood Pressure Referrals: YARELI AGOSTO MD [ACTIVE STAFF] - Follow up as needed
[2017-07-01] MEDS ORDERED: ASPIRIN 81 MG TABLET, CHEWABLE PO ONE (02:10)
[2017-07-01] MEDS ORDERED: KETOROLAC TROMETHAMINE INJ/PF 30 MG/1 ML SDV IV ONE (02:10)
[2017-07-01 02:51] LABS: ABSOLUTE EOSINOPHILS # (AUTO) 0.1 10^3/uL (0.0-0.6); ABSOLUTE LYMPHOCYTES (AUTO) 1.7 10^3/uL (0.5-4.7); ABSOLUTE MONOCYTES (AUTO) 0.8 10^3/uL (0.1-1.4); ABSOLUTE NEUT (AUTO) 5.7 10^3/uL (1.7-8.2); ALANINE AMINOTRANSFERASE 37 U/L (9-52); ALBUMIN 4.3 g/dL (3.5-5.0); ALKALINE PHOSPHATASE 72 U/L (38-126); ANION GAP 12 (5-19); ASPARTATE AMINO TRANSFERASE 21 U/L (14-36); BASOPHILS % (AUTO) 0.6 % (0-2); BILIRUBIN,DIRECT 0.2 mg/dL (0.0-0.4); BILIRUBIN,TOTAL 0.5 mg/dL (0.2-1.3); BLOOD UREA NITROGEN 9 mg/dL (7-20); CALCIUM 10.6 mg/dL (8.4-10.2); CARBON DIOXIDE 28 mmol/L (22-30); CHLORIDE 104 mmol/L (98-107); CREATINE KINASE 65 U/L (30-135); EOSINOPHILS % (AUTO) 0.9 % (0-6); GLUCOSE 89 mg/dL (75-110); HEMATOCRIT 43.4 % (36.0-47.0); HEMOGLOBIN 14.6 g/dL (12.0-15.5); LIPASE 104.4 U/L (23-300); LYMPHOCYTES % (AUTO) 20.8 % (13-45); MEAN CORPUSCULAR HEMOGLOBIN 30.5 pg (27.0-33.4); MEAN CORPUSCULAR HGB CONC 33.7 g/dL (32.0-36.0); MEAN CORPUSCULAR VOLUME 90 fl (80-97); MONOCYTES % (AUTO) 9.2 % (3-13); PLATELET COUNT 312 10^3/uL (150-450); POTASSIUM 3.8 mmol/L (3.6-5.0); RED CELL DISTRIBUTION WIDTH 13.4 % (11.5-14.0); SEGMENTED NEUTROPHILS % (AUTO) 68.5 % (42-78); SODIUM 143.8 mmol/L (137-145); TOTAL CELLS COUNTED % (AUTO) 100 %; TOTAL PROTEIN 6.8 g/dL (6.3-8.2); WHITE BLOOD COUNT 8.3 10^3/uL (4.0-10.5)
[2017-07-01 03:08] LABS: FREE T3 3.99 pg/mL (2.77-5.27); FREE T4 (FREE THYROXINE) 1.02 ng/dL (0.78-2.19)
[2017-07-01 03:21] LABS: THYROID STIMULATING HORMONE 1.45 uIU/mL (0.47-4.68)
--- NOTE | 2017-07-01 03:30 | RADIOLOGY REPORT (SQ) ---
EXAM DESCRIPTION: CHEST PA/LAT CLINICAL HISTORY: chest pain COMPARISON: 12/10/2015 FINDINGS: Frontal and lateral views of the chest. The cardiomediastinal silhouette has normal size and contour. No consolidation, pneumothorax, or pleural effusion. No displaced rib fractures identified. Upper abdominal soft tissues are unremarkable. IMPRESSION: 1. No acute pulmonary process identified.
[2017-07-01] MEDS ORDERED: ONDANSETRON HCL INJ/PF 4 MG/2 ML SDV IV ONE (03:42)
[2017-07-01] MEDS ORDERED: NORMAL SALINE 1000 ML 1,000 ML IV ONE (03:43)
[2017-07-01 04:57] VITALS: BP 113/79
--- NOTE | 2017-07-02 12:44 | EKG REPORT ---
SEVERITY:- NORMAL ECG - SINUS RHYTHM : Confirmed by: Kerline Enciso MD 02-Jul-2017 12:43:53
--- NOTE | 2017-07-02 12:45 | EKG REPORT ---
SEVERITY:- NORMAL ECG - SINUS RHYTHM : Confirmed by: Kerline Enciso MD 02-Jul-2017 12:43:59
== END 2017-07-01 05:06 | disposition home or self-care (01) ==
LOC: ER 00:40
DX: R07.89 Other chest pain (principal); R53.83 Other fatigue; F17.200 Nicotine dependence, unspecified, uncomplicated; J44.9 Chronic obstructive pulmonary disease, unspecified; Z88.1 Allergy status to other antibiotic agents; Z88.6 Allergy status to analgesic agent; Z88.2 Allergy status to sulfonamides
CPT/HCPCS: 93005; 99284; 96361; 96374; 96375; 36415; 84439; 82550; 83690; 84443; 84703; 85025; 80053; 84484; 84481; 85379; 71020; 93010; J1885; J2405; J7030

== ENCOUNTER → 2017-07-24 | Outpatient (CLI) | payer OTHER, MEDICAID ==
--- NOTE | 2017-07-24 18:19 | RADIOLOGY REPORT (SQ) ---
EXAM DESCRIPTION: NM HIDA SCAN WITH CCK COMPLETED DATE/TIME: 07/24/2017 3:54 pm REASON FOR STUDY: EPIGASTRIC PAIN (R10.13), NAUSEA (R11.0) R10.13 EPIGASTRIC PAIN R11.0 NAUSEA COMPARISON: CT abdomen and pelvis 02/03/2016 Abdominal ultrasound 03/03/2016 RADIONUCLIDE AND DOSE: DOSAGE RADIONUCLIDE: 4.5 millicuries Tc99m Mebrofenin. DOSAGE CCK: 1.3 micrograms. DOSAGE MORPHINE: Not required. The route of agent administration: Intravenous TECHNIQUE: Very limited gallbladder ultrasound imaging was performed to confirm the presence of gall bladder polyps rather than stones. Serial nuclear medicine imaging right upper quadrant up to 60 min utes following injection of radionuclide. CCK injected after gallbladder visualized. LIMITATIONS: None. FINDINGS: LIVER: Normal visualization without areas of photopenia. INTRAHEPATIC BILE DUCTS: Normal visualization COMMON BILE DUCT: Normal visualization GALLBLADDER: Normal visualization. Calculated ejection fraction of 5%. Normal range is greater sara n 35%. PHYSICAL RESPONSE: Patients presenting complaint was reproduced. OTHER: No other significant finding. IMPRESSION: No scintigraphic evidence of cystic duct or common duct obstruction. There is gallbladder dysfunction, depressed gallbladder ejection of 5% IV CCK reproduced the patient's symptoms TECHNICAL DOCUMENTATION: JOB ID: [id number]- All Rights Reserved
== END ==
LOC: RAD 13:14
PROVIDERS: ATTEND Surgery
DX: R10.13 Epigastric pain (principal); R11.0 Nausea
CPT/HCPCS: 78227; J2805; A9537; Q9969

== ENCOUNTER → 2017-08-11 | Outpatient (CLI) | payer OTHER, MEDICAID ==
--- NOTE | 2017-08-11 12:40 | RADIOLOGY REPORT (SQ) ---
EXAM DESCRIPTION: BARIUM SWALLOW ESOPHAGUS COMPLETED DATE/TIME: 08/11/2017 10:12 am REASON FOR STUDY: K31.84 GASTROPARESIS K31.84 GASTROPARESIS COMPARISON: CT abdomen pelvis 02/03/2016 Two-view chest 07/01/2017 TECHNIQUE: Under fluoroscopic guidance, patient ingested effervescent granules followed by thick and thin barium. Fluoroscopic spot images and routine radiographic images acquired and stored on PACS. 12 MM BARIUM TABLET GIVEN: Yes. No significant delay in passage. LIMITATIONS: None. FLUOROSCOPY TIME: FLUORO TIME: 1.7 minutes 9 series of digital images saved to PACS. FINDINGS: NEUROMUSCULAR COORDINATION OF SWALLOW: Normal. No aspiration. ESOPHAGEAL MOTILITY: Normal peristalsis. No esophageal spasm. ESOPHAGEAL MUCOSA: Normal mucosa without masses or ulceration. GASTRO-ESOPHAGEAL JUNCTION: Tiny hiatal hernia with minimal gastroesophageal reflux into the distal 3 rd of the esophagus. No distal esophageal stricture or mucosal irregularities. NON-GI TRACT STRUCTURES: No significant finding. OTHER: No other significant finding. IMPRESSION: Tiny hiatal hernia with minimal gastroesophageal reflux COMMENT: Quality ID [id number]: Final reports for procedures using fluoroscopy that document radiation exp osure indices, or exposure time and number of fluorographic images (if radiation exposure indices are not available) TECHNICAL DOCUMENTATION: JOB ID: [id number] [employer]- All Rights Reserved
== END ==
LOC: RAD 10:06
PROVIDERS: ATTEND Internal Medicine Gastroenterology
DX: K31.84 Gastroparesis (principal)
CPT/HCPCS: 74220

== ENCOUNTER → 2018-02-04 | Outpatient (CLI) | payer MEDICAID, OTHER ==
--- NOTE | 2018-02-04 18:29 | RADIOLOGY REPORT (SQ) ---
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 TECHNIQUE: Multiplanar imaging includes noncontrasted T1, T2, FLAIR, diffusion with ADC map and post gadolinium contrast T1 sequences. Images stored on PACS. Additional thin section axial and coronal T1 pre and post-contrast images through the internal audito ry canals and inner ear structures to encompass the course of the intracranial right and left facial nerves. CONTRAST TYPE AND DOSE: 10 mL Prohance. RENAL FUNCTION: None required. The patient is less than 50 years old. LIMITATIONS: Mild motion artifact FINDINGS: ANATOMY: No anomalies. Normal vascular flow voids. Pituitary fossa normal. CSF SPACES: Normal in size and contour. No hemorrhage. CEREBRUM: Sulci and gyri normal in size and contour. Normal white matter signal on FLAIR imaging. No evidence of hemorrhage, mass, or extraaxial fluid collection. No abnormal enhancement post contrast. POSTERIOR FOSSA: No signal alteration. No hemorrhage. No edema, masses, or mass effect. Internal holly tory canals, cerebellopontine angles, mastoids normal. No enhancing lesions. No abnormal facial nerve enhancement post contrast. DIFFUSION IMAGING: Negative for acute or subacute infarction. ORBITS: No masses. Globes normal. PARANASAL SINUSES: No fluid levels. Mucosa normal. OTHER: No other significant finding. IMPRESSION: NORMAL MRI OF THE BRAIN WITHOUT AND WITH INTRAVENOUS GADOLINIUM CONTRAST. EVIDENCE OF ACUTE STROKE: NO. TECHNICAL DOCUMENTATION: JOB ID: [id number] [employer]- All Rights Reserved Reading location - IP/workstation name: [email or web address]
== END ==
LOC: RAD 16:47
PROVIDERS: ATTEND Nurse Practitioner Family
DX: G51.0 Bell's palsy (principal)
CPT/HCPCS: 70553; A9576

== ENCOUNTER 2019-02-02 18:39 | Emergency (ER) | payer OTHER ==
[2019-02-02] MEDS ORDERED: IBUPROFEN 800 MG TABLET PO ONE (19:21)
--- NOTE | 2019-02-02 19:23 | ER Document Report ---
ED Medical Screen (RME) - General Chief Complaint: Abdominal Pain Stated Complaint: ABDOMINAL PAIN Time Seen by Provider: 02/02/19 19:12 Primary Care Provider: REEMA SALAZAR NP [Primary Care Provider] - Follow up as needed Mode of Arrival: Ambulatory Information source: Patient Notes: This 48-year-old female presents to the emergency department with complaints of left lower abdominal pain. Patient reports she works at [employer]. 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 She reports she went home and rested seemed to feel better but today when she returned to work and she lifted a handle only partially she could feel the strain in her stomach. She reports it feels like frozen pain. Denies fever vomiting diarrhea. Patient has history of multiple abdominal surgeries to include a Ines and a bladder sling that was removed. Reports her last menstrual period was a long time ago reports she is going to the [facility]. I have greeted and performed a rapid initial assessment of this patient. A comprehensive ED assessment and evaluation of the patient, analysis of test results and completion of the medical decision making process will be conducted by additional ED providers. Dictation of this chart was performed using voice recognition software; therefore, there may be some unintended grammatical errors. TRAVEL OUTSIDE OF THE [place] IN LAST 30 DAYS: No - Related Data Allergies/Adverse Reactions: erythromycin base [Erythromycin Base] Allergy (Verified 02/02/19 18:44) gabapentin Allergy (Verified 02/02/19 18:44) Sulfa (Sulfonamide Antibiotics) Allergy (Verified 02/02/19 18:44) tramadol [From Ultram] Adverse Reaction (Verified 02/02/19 18:44) Past Medical History - Social History Chew tobacco use (# tins/day): No Frequency of alcohol use: None Drug Abuse: None Pulmonary Medical History: Reports: Hx Asthma, Hx COPD Renal/ Medical History: Reports: Hx Ovarian Cysts - Right. Denies: Hx Kidney Stones, Hx Peritoneal Dialysis, Hx Pelvic Inflammatory Disease, Hx Renal Insufficiency GI Medical History: Reports: Hx Gastroesophageal Reflux Disease - Reed's esophagus, Hx Irritable Bowel Musculoskeltal Medical History: Reports Hx Musculoskeletal Deformity, Reports Hx Musculoskeletal Trauma Psychiatric Medical History: Reports: Hx Attention Deficit Hyperactivity Disorder Past Surgical History: Reports: Hx Abdominal Surgery - Laparoscopy, Hx Adenoidectomy, Hx Genitourinary Surgery - Bladder sling, Hx Gynecologic Surgery - DNC, Hx Nose Surgery - Rhinoplasty, Hx Tonsillectomy, Hx Tubal Ligation - Immunizations Immunizations up to date: Yes Hx Diphtheria, Pertussis, Tetanus Vaccination: Yes Physical Exam - Vital signs Vitals: Temp Pulse Resp BP Pulse Ox 98.2 F 88 16 135/89 H 97 02/02/19 18:48 02/02/19 18:48 02/02/19 18:48 02/02/19 18:48 02/02/19 18:48 Course - Vital Signs Vital signs: Temp Pulse Resp BP Pulse Ox 98.2 F 88 16 135/89 H 97 02/02/19 18:48 02/02/19 18:48 02/02/19 18:48 02/02/19 18:48 02/02/19 18:48 Doctor's Discharge - Discharge Referrals: REEMA SALAZAR NP [Primary Care Provider] - Follow up as needed
[2019-02-02 20:29] LABS: ABSOLUTE BASOPHILS # (AUTO) 0.1 10^3/uL (0.0-0.2); ABSOLUTE EOSINOPHILS # (AUTO) 0.3 10^3/uL (0.0-0.6); ABSOLUTE LYMPHOCYTES (AUTO) 2.2 10^3/uL (0.5-4.7); ABSOLUTE MONOCYTES (AUTO) 0.8 10^3/uL (0.1-1.4); ABSOLUTE NEUT (AUTO) 4.4 10^3/uL (1.7-8.2); BASOPHILS % (AUTO) 0.7 % (0-2); EOSINOPHILS % (AUTO) 3.7 % (0-6); HEMATOCRIT 42.4 % (36.0-47.0); HEMOGLOBIN 14.3 g/dL (12.0-15.5); LYMPHOCYTES % (AUTO) 28.3 % (13-45); MEAN CORPUSCULAR HEMOGLOBIN 30.5 pg (27.0-33.4); MEAN CORPUSCULAR HGB CONC 33.7 g/dL (32.0-36.0); MEAN CORPUSCULAR VOLUME 91 fl (80-97); MONOCYTES % (AUTO) 10.3 % (3-13); PLATELET COUNT 301 10^3/uL (150-450); RED BLOOD COUNT 4.68 10^6/uL (3.72-5.28); RED CELL DISTRIBUTION WIDTH 13.9 % (11.5-14.0); TOTAL CELLS COUNTED % (AUTO) 100 %; WHITE BLOOD COUNT 7.7 10^3/uL (4.0-10.5)
[2019-02-02 20:32] LABS: AMORPHOUS SEDIMENT,URINE TRACE /HPF; APPEARANCE,URINE CLEAR; BILIRUBIN,URINE NEGATIVE (NEGATIVE); CALCIUM OXALATE CRYSTALS,URINE MODERATE /HPF; COLOR,URINE YELLOW; GLUCOSE, URINE NEGATIVE (NEGATIVE); KETONES,URINE NEGATIVE (NEGATIVE); LEUKOCYTE ESTERASE,URINE NEGATIVE (NEGATIVE); NITRITE,URINE NEGATIVE (NEGATIVE); PROTEIN,URINE NEGATIVE (NEGATIVE); URINE SPECIFIC GRAVITY 1.026; UROBILINOGEN,URINE NEGATIVE mg/dL (<2.0)
[2019-02-02 20:47] LABS: ALBUMIN 4.1 g/dL (3.5-5.0); ALKALINE PHOSPHATASE 84 U/L (38-126); ANION GAP 6 (5-19); ASPARTATE AMINO TRANSFERASE 38 U/L (14-36); BILIRUBIN,DIRECT 0.3 mg/dL (0.0-0.4); BILIRUBIN,TOTAL 0.3 mg/dL (0.2-1.3); BLOOD UREA NITROGEN 18 mg/dL (7-20); CALCIUM 9.8 mg/dL (8.4-10.2); CARBON DIOXIDE 28 mmol/L (22-30); CHLORIDE 103 mmol/L (98-107); GLUCOSE 107 mg/dL (75-110); POTASSIUM 4.1 mmol/L (3.6-5.0); TOTAL PROTEIN 6.8 g/dL (6.3-8.2)
--- NOTE | 2019-02-02 22:25 | RADIOLOGY REPORT (SQ) ---
EXAM DESCRIPTION: [facility]: US ABDOMEN LIMITED CLINICAL HISTORY: 48 years Female, left side pain, felt tearing. hernia? COMPARISON: None FINDINGS: Sonographic evaluation of the abdominal wall in the left lower quadrant was performed. No soft tissue fluid collections identified in the area of interest. No evidence for hernia. IMPRESSION: No evidence for hematoma or hernia in the area of interest in the left lower quadrant.
--- NOTE | 2019-02-03 00:11 | ER Document Report ---
ED General - General Chief Complaint: Abdominal Pain Stated Complaint: ABDOMINAL PAIN Time Seen by Provider: 02/02/19 19:12 Primary Care Provider: REEMA SALAZAR NP [NO LOCAL MD] - Follow up as needed Mode of Arrival: Ambulatory Notes: This is a pleasant 48-year-old female to the emergency department with a chief complaint of abdominal pain. Patient has had multiple surgeries over the last 2 years. 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 [place] an immediate sharp pain. Almost bringing her to her knees. She did not pass out. No vomiting. No diarrhea. Has been having normal bowel movements and passing gas today. The pain has continued feels like a ripping and burning sensation in the left lower quadrant. TRAVEL OUTSIDE OF THE [place] IN LAST 30 DAYS: No - HPI Onset: Just prior to arrival Onset/Duration: Sudden Quality of pain: Throbbing Severity: Moderate Pain Level: 3 - Related Data Allergies/Adverse Reactions: erythromycin base [Erythromycin Base] Allergy (Verified 02/02/19 18:44) gabapentin Allergy (Verified 02/02/19 18:44) Sulfa (Sulfonamide Antibiotics) Allergy (Verified 02/02/19 18:44) tramadol [From Ultram] Adverse Reaction (Verified 02/02/19 18:44) Past Medical History - General Information source: Patient - Social History Smoking Status: Current Every Day Smoker Chew tobacco use (# tins/day): No Frequency of alcohol use: None Drug Abuse: None Lives with: Family Family History: None Patient has suicidal ideation: No Patient has homicidal ideation: No Pulmonary Medical History: Reports: Hx Asthma, Hx COPD Renal/ Medical History: Reports: Hx Ovarian Cysts - Right. Denies: Hx Kidney Stones, Hx Peritoneal Dialysis, Hx Pelvic Inflammatory Disease, Hx Renal Insufficiency GI Medical History: Reports: Hx Gastroesophageal Reflux Disease - Reed's esophagus, Hx Irritable Bowel Musculoskeletal Medical History: Reports Hx Musculoskeletal Deformity, Reports Hx Musculoskeletal Trauma Psychiatric Medical History: Reports: Hx Attention Deficit Hyperactivity Disorder Past Surgical History: Reports: Hx Abdominal Surgery - Laparoscopy, Hx Adenoidectomy, Hx Genitourinary Surgery - Bladder sling, Hx Gynecologic Surgery - DNC, Hx Nose Surgery - Rhinoplasty, Hx Tonsillectomy, Hx Tubal Ligation - Immunizations Immunizations up to date: Yes Hx Diphtheria, Pertussis, Tetanus Vaccination: Yes Review of Systems - Review of Systems Constitutional: No symptoms reported. denies: Fever, Malaise, Weakness EENT: No symptoms reported Cardiovascular: No symptoms reported. denies: Chest pain, Palpitations, Dizziness Respiratory: No symptoms reported. denies: Cough, Hurts to breathe, Short of breath, Wheezing Gastrointestinal: Abdominal pain. denies: Diarrhea, Nausea, Vomiting Genitourinary: denies: Burning, Dysuria, Discharge Female Genitourinary: No symptoms reported Musculoskeletal: denies: Back pain, Joint pain, Muscle pain Skin: No symptoms reported Hematologic/Lymphatic: No symptoms reported Neurological/Psychological: No symptoms reported Physical Exam - Vital signs Vitals: Temp Pulse Resp BP Pulse Ox 98.2 F 88 16 135/89 H 97 02/02/19 18:48 02/02/19 18:48 02/02/19 18:48 02/02/19 18:48 02/02/19 18:48 Interpretation: Normal - General General appearance: Appears well, Alert - HEENT Head: Normocephalic, Atraumatic Eyes: Normal Pupils: PERRL - Respiratory Respiratory status: No respiratory distress Chest status: Nontender Breath sounds: Normal Chest palpation: Normal - Cardiovascular Rhythm: Regular Heart sounds: Normal auscultation Murmur: No - Abdominal Inspection: Normal Distension: No distension Bowel sounds: Normal Tenderness: Tender - Some mild tenderness to palpation in the left lower quadr ant. She is not distended. No guarding. No rebound. Normal bowel sounds. Organomegaly: No organomegaly - Back Back: Normal, Nontender - Extremities General upper extremity: Normal inspection, Nontender, Normal color, Normal ROM, Normal temperature General lower extremity: Normal inspection, Nontender, Normal color, Normal ROM, Normal temperature, Normal weight bearing. No: Oswaldo's sign - Neurological Neuro grossly intact: Yes Cognition: Normal Orientation: AAOx4 Bertha Coma Scale Eye Opening: Spontaneous [place] Coma Scale Verbal: Oriented Bertha Coma Scale Motor: Obeys Commands Bertha Coma Scale Total: 15 Speech: Normal Motor strength normal: LUE, RUE, LLE, RLE Sensory: Normal - Psychological Associated symptoms: Normal affect, Normal mood - Skin Skin Temperature: Warm Skin Moisture: Dry Skin Color: Normal Course - Re-evaluation Re-evalutation: 02/03/19 01:30 Laboratory 02/02/19 02/02/1919 20:11 20:11 20:11 WBC 7.7 RBC 4.68 Hgb 14.3 Hct 42.4 MCV 91 MCH 30.5 MCHC 33.7 RDW 13.9 Plt Count 301 Seg Neutrophils % 57.0 Lymphocytes % 28.3 Monocytes % 10.3 Eosinophils % 3.7 Basophils % 0.7 Absolute Neutrophils 4.4 Absolute Lymphocytes 2.2 Absolute Monocytes 0.8 Absolute Eosinophils 0.3 Absolute Basophils 0.1 Sodium 136.7 L Potassium 4.1 Chloride 103 Carbon Dioxide 28 Anion Gap 6 BUN 18 Creatinine 0.75 Est GFR ( Amer) > 60 Est GFR (Non-Af Amer) > 60 Glucose 107 Calcium 9.8 Total Bilirubin 0.3 Direct Bilirubin 0.3 Neonat Total Bilirubin Not Reportable Neonat Direct Bilirubin Not Reportable Neonat Indirect Bili Not Reportable AST 38 H ALT 51 Alkaline Phosphatase 84 Total Protein 6.8 Albumin 4.1 Urine Color YELLOW Urine Appearance CLEAR Urine pH 5.0 Ur Specific [place] 1.026 Urine Protein NEGATIVE Urine Glucose (UA) NEGATIVE Urine Ketones NEGATIVE Urine Blood NEGATIVE Urine Nitrite NEGATIVE Urine Bilirubin NEGATIVE Urine Urobilinogen NEGATIVE Ur Leukocyte Esterase NEGATIVE Urine WBC (Auto) 2 Urine RBC (Auto) 1 Squamous Epi Cells Auto <1 Calcium Oxalate Cr Auto MODERATE Amorphous Sediment Auto TRACE Urine Mucus (Auto) OCC Urine Ascorbic Acid NEGATIVE Urine HCG, Qual NEGATIVE Abdomen Ultrasound 02/02/19 19:21 IMPRESSION: No evidence for hematoma or hernia in the area of interest in the left lower quadrant. Acute Abdomen Series 02/03/19 00:28 IMPRESSION: 1. No acute findings. Well-appearing female in no acute distress which describes more of a acute abdominal wall strain. Responding well to NSAIDs. No evidence of obstruction. Normal labs. Afebrile. Ultrasound was performed from triage was read as unremarkable. There is no evidence of an incarcerated hernia. She has no guarding or rebound. Nontoxic-appearing. No peritoneal signs. Afebrile. At this time we have given her some NSAIDs and we will discharge her on the same. Follow-up information has been given for general surgeon. Has an appointment on Monday with a collar setter. - Vital Signs Vital signs: Temp Pulse Resp BP Pulse Ox 97.8 F 88 16 109/76 99 02/02/19 22:52 02/02/19 22:52 02/02/19 22:52 02/02/19 22:52 02/02/19 22:52 - Laboratory Result Diagrams: 02/02/19 20:11 02/02/19 20:11 Laboratory results interpreted by me: 02/02/19 20:11 Sodium 136.7 L AST 38 H Discharge - Discharge Clinical Impression: Abdominal wall strain Qualifiers: Encounter type: initial encounter Qualified Code(s): S39.011A - Strain of muscle, fascia and tendon of abdomen, initial encounter Condition: Good Disposition: HOME, SELF-CARE Instructions: Abdominal Pain ([facility]), Muscle Strain ([facility]) Additional Instructions: In the event that you develop any worsening abdominal pain, intractable vomiting, change in bowel patterns or other concerns please return. Follow-up with your collar setter as scheduled. In the event that your abdominal pain persist follow-up information for general surgeon has been provided as you may require further evaluation. Prescriptions: Ketorolac Tromethamine [Toradol 10 mg Tablet] 10 mg PO Q6HP PRN 5 Days #20 tablet PRN Reason: Oxycodone HCl/Acetaminophen [Percocet 5-325 mg Tablet] 1 tab PO Q8H PRN 3 Days #9 tablet PRN Reason: Ranitidine HCl [Zantac] 150 mg PO BID 7 Days #14 tablet Referrals: REEMA SALAZAR NP [NO LOCAL MD] - Follow up as needed VINCE BARRAGAN MD [ACTIVE STAFF] - Follow up as needed
[2019-02-03] MEDS ORDERED: OXYCODONE-ACETAMINOPHEN 5-325 MG TABLET PO ONE (00:28)
--- NOTE | 2019-02-03 01:13 | RADIOLOGY REPORT (SQ) ---
EXAM DESCRIPTION: [facility]: XR ABDOMEN SUPINE AND ERECT WITH CHEST (ABD ACUTE SERIES) Views: 3 CLINICAL HISTORY: 48 years Female, abd pain Previous cholecystectomy and bladder surgery. Pain left lower abdomen x1 day COMPARISON: None. FINDINGS: AP Chest: Lungs are clear without infiltrate, effusion, pneumothorax. Mediastinum is within normal limits for positioning. No acute bone findings. Supine and erect AP abdomen: Bowel gas pattern is normal, with no air-fluid levels or small bowel distention. No free intraperitoneal air. No suspicious calcifications. Psoas shadows are sharp. No acute bone findings. No diastasis of the sacroiliac joints or symphysis pubis. IMPRESSION: 1. No acute findings.
[2019-02-03] MEDS ORDERED: KETOROLAC TROMETHAMINE 60 MG/2 ML SDV IM ONE (01:29)
[2019-02-03 02:17] VITALS: BP 110/74
== END 2019-02-03 02:07 | disposition home or self-care (01) ==
LOC: ER 18:39
DX: S39.011A Strain of muscle, fascia and tendon of abdomen, initial encounter (principal); R10.32 Left lower quadrant pain; X50.0XXA Overexertion from strenuous movement or load, initial encounter; Y93.F2 Activity, caregiving, lifting; Y99.0 Civilian activity done for income or pay; M54.9 Dorsalgia, unspecified; M25.50 Pain in unspecified joint; M79.10 Myalgia, unspecified site; F17.200 Nicotine dependence, unspecified, uncomplicated; J44.9 Chronic obstructive pulmonary disease, unspecified; Z88.6 Allergy status to analgesic agent; Z88.1 Allergy status to other antibiotic agents; Z88.2 Allergy status to sulfonamides
CPT/HCPCS: 99284; 96374; 36415; 85025; 81025; 80053; 81001; 74022; 76705; J1885